=== PATIENT | female | born 1960 | race Caucasian/White ===

== ENCOUNTER → 2019-04-01 | Outpatient (CLI) | payer BC ==
[~2019-04-01] MED LIST: ALPR1T; ATOM80CA PO; BUSPAR PO; CEPH500C PO; CYCL10TA9 PO; DIPH25TA82; DIPH50CA; ENAL20TA PO; FEXO180T; FLUO20CA25 PO; FLUV100C; HORMONE INJECTION; HYDR-3454 PO; HYDR-3714 PO; HYDR1CAP2; IBUP800T26 PO; NFPRILOC40; PS30T; TRAZ-144 PO; TRAZODONE; [UNRECOGNIZED DRUG - OTHER] PO
--- NOTE | 2019-04-02 09:41 | Diagnostic Imaging Report ---
EXAMINATION: Magnetic resonance imaging of the right ankle without contrast. DATE: April 01, 2019. COMPARISON: None. HISTORY: 58-year-old female, right ankle pain and swelling. TECHNIQUE: Magnetic Resonance Imaging sequences were performed of the ankle without contrast. [< >] FINDINGS: There are limitations of the exam relating to motion artifact and low fzwqqv-ph-ktphu ratio. TENDONS AND LIGAMENTS: The Achilles tendon is unremarkable. There is fluid in the tendon sheath of tibialis posterior and flexor digitorum longus compatible with tenosynovitis. There is no identified tear of a posterior flexor tendon. There is fluid in the common peroneal tendon sheath compatible with tenosynovitis. The peroneus longus and peroneus brevis tendons are without identified tear. The anterior extensor tendons - tibialis anterior, extensor hallucis longus and extensor digitorum longus tendons - are intact. The anterior and posterior syndesmotic ligaments are intact. The anterior talofibular, posterior talofibular, calcaneofibular and deltoid ligaments are intact. There is thickening and abnormal signal involving the medial cord of the plantar fascia. There is a tear at the calcaneal attachment site of the medial cord of the plantar fascia with retraction of the plantar fascia by 12 mm. This is best illustrated on sagittal STIR sequence image 8. JOINTS: There is a small tibiotalar and a small to moderate size posterior subtalar joint effusion. BONE: The bones all have normal configuration. The bone marrow signal is within normal limits. Specifically, negative for fracture, osteomyelitis, osteonecrosis, or marrow replacing process. The talar dome is intact. BURSAE AND SOFT TISSUES: The bursae and soft tissues surrounding the ankle are unremarkable. IMPRESSION: 1. Tear at the medial cord of the plantar fascial attachment site of the calcaneus with retraction measuring 12 mm. 2. Multifocal tenosynovitis involving tibialis posterior, flexor digitorum longus, and common peroneal tenosynovitis. No additional identified tendon tear. 3. Intact ankle ligaments. 4. No acute fracture or bone contusion. Intact talar dome. Small tibiotalar and small to moderate size posterior subtalar joint effusions. 5. Significant technical limitations of the exam relating to motion artifact as well as low lfnzjw-ii-bltmn ratio. Dictated by: Dictated on workstation # [id number]
== END ==
LOC: RAD 16:54
PROVIDERS: ATTEND Podiatrist Foot & Ankle Surgery
DX: S96.811A Strain of other specified muscles and tendons at ankle and foot level, right foot, initial encounter (principal); M65.872 Other synovitis and tenosynovitis, left ankle and foot
CPT/HCPCS: 73721

== ENCOUNTER 2019-04-16 10:15 | Outpatient (CLI) | payer BC ==
[~2019-04-16] VITALS: Ht 165.1 cm; Wt 67.1 kg
[~2019-04-16 10:15] MED LIST changes: +FLUT15.88 NS; +GABA-488 PO; +LISI10TA2 PO; +MELO7.5T46 PO; +TURM538C PO; +VITA1CAP PO
== END 2019-04-16 10:51 | disposition home or self-care (01) ==
LOC: PREOP 10:15
PROVIDERS: ATTEND Podiatrist Foot & Ankle Surgery
DX: Z01.818 Encounter for other preprocedural examination (principal)

== ENCOUNTER 2019-04-19 05:53 | Day surgery (SDC) | payer BC ==
[~2019-04-19] VITALS: Ht 165.1 cm; Wt 65.5 kg
[2019-04-19] VITALS (11 sets, daily range): BP systolic 134–156; BP diastolic 74–95
--- OUTSIDE RECORDS SUMMARY | 2019-04-19 05:57 | XMS REPORT | Continuity of Care Document ---
Author Organization Unknown Address Unknown Allergies Active Description Code Type Severity Reaction Onset Reported/Identified Relationship to Patient Clinical Status Yes CODEINE SULFATE UNKNOWN UNKNOWN Yes codeine [id number] Drug Allergy Mild TOLERATES HYDRO 02/11/2010 Yes No Known Drug Allergies [id number] Drug Allergy Unknown N/A 04/15/2019 Medications There is no data. 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 08/18/2014 KOREY DPM, SENIA Q Ot 733.99 BONE CARTILAGE DIS NEC 08/18/2014 KOREY DPM, SENIA Q Ot 735.0 HALLUX VALGUS 08/18/2014 KOREY DPM, SENIA Q Ot 735.4 OTHER HAMMER TOE 08/18/2014 KOREY DPM, SENIA Q Ot 754.52 METATARSUS PRIMUS VARUS 08/18/2014 KOREY DPM, SENIA Q Ot V57.1 PHYSICAL THERAPY NEC 08/18/2014 KOREY DPM, SENIA Q Ot V74.8 SCREEN-BACTERIAL DIS NEC 02/19/2016 Ot V76.12 OTH SCREEN MAMMO- MALIGN NEOPLASM OF MARJAN 02/19/2016 Ot 610.0 SOLITARY CYST OF BREAST 02/19/2016 Ot 611.72 LUMP OR MASS IN BREAST 02/19/2016 Ot 401.9 HYPERTENSION NOS 02/19/2016 Ot 610.0 SOLITARY CYST OF BREAST 02/19/2016 Ot 610.4 MAMMARY DUCT ECTASIA 02/19/2016 Ot V58.69 OT MED,LT,CURRENT USE 02/19/2016 KOREY DPM, SENIA Q Ot 733.99 BONE CARTILAGE DIS NEC 02/19/2016 KOREY DPM, SENIA Q Ot 735.0 HALLUX VALGUS 02/19/2016 KOREY DPM, SENIA Q Ot 735.4 OTHER HAMMER TOE 02/19/2016 KOREY DPM, SENIA Q Ot V72.81 [id number] CARDIOVASCULAR 02/19/2016 KOREY DPM, SENIA Q Ot V74.8 SCREEN-BACTERIAL DIS NEC 02/19/2016 KOREY DPM, SENIA Q Ot 733.99 BONE CARTILAGE DIS NEC 02/19/2016 KOREY DPM, SENIA Q Ot 735.0 HALLUX VALGUS 02/19/2016 KOREY DPM, SENIA Q Ot 735.4 OTHER HAMMER TOE 02/19/2016 KOREY DPM, SENIA Q Ot V72.84 EXAM PRE-OPERATIVE NOS 03/02/2016 CROW BREWSTER DO Ot M25.511 PAIN IN RIGHT SHOULDER 04/06/2016 CELINA ZUNIGA CURING OVEN ATTENDANT Ot M47.892 OTHER SPONDYLOSIS, CERVICAL REGION 04/06/2016 CELINA ZUNIGA CURING OVEN ATTENDANT Ot M75.41 IMPINGEMENT SYNDROME OF RIGHT SHOULDER 04/28/2016 CELINA ZUNIGA CURING OVEN ATTENDANT Ot M47.892 OTHER SPONDYLOSIS, CERVICAL REGION 04/28/2016 CELINA ZUNIGA CURING OVEN ATTENDANT Ot M75.41 IMPINGEMENT SYNDROME OF RIGHT SHOULDER 02/28/2018 Kristie Live W 401.0 MALIGNANT ESSENTIAL HYPERTENSION 02/28/2018 Kristie Live W I10 ESSENTIAL (PRIMARY) HYPERTENSION 02/28/2018 Kristie Live W 296.90 UNSPECIFIED EPISODIC MOOD DISORDER 02/28/2018 Kimberley Livea W 401.0 MALIGNANT ESSENTIAL HYPERTENSION 02/28/2018 Kristie Live W F39 UNSPECIFIED MOOD [AFFECTIVE] DISORDER 02/28/2018 Kristie Live W I10 ESSENTIAL (PRIMARY) HYPERTENSION 02/28/2018 Kristie Live W 296.90 UNSPECIFIED EPISODIC MOOD DISORDER 02/28/2018 Kristie Live 401.0 MALIGNANT ESSENTIAL HYPERTENSION 02/28/2018 Kristie Live W F39 UNSPECIFIED MOOD [AFFECTIVE] DISORDER 02/28/2018 Kristie Live I10 ESSENTIAL (PRIMARY) HYPERTENSION 10/11/2018 Kristie Live 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 10/11/2018 Kristie Live F90.9 ATTENTION- DEFICIT HYPERACTIVITY DISORDER, UNSPECIFIED TYPE 10/11/2018 Kristie Live A 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 10/11/2018 Kristie Live A F90.9 ATTENTION- DEFICIT HYPERACTIVITY DISORDER, UNSPECIFIED TYPE 03/26/2019 KOREY DPM, SENIA Q Ot 733.99 BONE CARTILAGE DIS NEC 03/26/2019 KOREY DPM, SENIA Q Ot 735.0 HALLUX VALGUS 03/26/2019 KOREY DPM, SENIA Q Ot 735.4 OTHER HAMMER TOE 03/26/2019 KOREY DPM, SENIA Q Ot V72.81 [id number] CARDIOVASCULAR 03/26/2019 KOREY DPM, SENIA Q Ot V74.8 SCREEN-BACTERIAL DIS NEC 03/26/2019 KOREY DPM, SENIA Q Ot 733.99 BONE CARTILAGE DIS NEC 03/26/2019 KOREY DPM, SENIA Q Ot 735.0 HALLUX VALGUS 03/26/2019 KOREY DPM, SENIA Q Ot 735.4 OTHER HAMMER TOE 03/26/2019 KOREY DPM, SENIA Q Ot V72.84 EXAM PRE-OPERATIVE NOS 03/26/2019 CROW BREWSTER DO Ot M25.511 PAIN IN RIGHT SHOULDER 03/28/2019 KOREY DPM, SENIA Q Ot 733.99 BONE CARTILAGE DIS NEC 03/28/2019 KOREY DPM, SENIA Q Ot 735.0 HALLUX VALGUS 03/28/2019 KOREY DPM, SENIA Q Ot 735.4 OTHER HAMMER TOE 03/28/2019 KOREY DPM, SENIA Q Ot V72.81 [id number] CARDIOVASCULAR 03/28/2019 KOREY DPM, SENIA Q Ot V74.8 SCREEN-BACTERIAL DIS NEC 03/28/2019 KOREY DPM, SENIA Q Ot 733.99 BONE CARTILAGE DIS NEC 03/28/2019 KOREY DPM, SENIA Q Ot 735.0 HALLUX VALGUS 03/28/2019 KOREY DPM, SENIA Q Ot 735.4 OTHER HAMMER TOE 03/28/2019 KOREY DPM, SENIA Q Ot V72.84 EXAM PRE-OPERATIVE NOS 03/28/2019 NEY DO, CROW Ozuna Ot M25.511 PAIN IN RIGHT SHOULDER 04/07/2019 KOREY DPM, SENIA Q Ot M65.872 OTHER SYNOVITIS AND TENOSYNOVITIS, LEFT 04/07/2019 KOREY DPM, SENIA Q Ot S96.811A STRAIN OF MUSCLES AND TENDONS AT ANK/FT 04/12/2019 KOREY DPM, SENIA Q Ot Z01.818 ENCOUNTER FOR OTHER PREPROCEDURAL EXAMIN 04/15/2019 KOREY DPM, SENIA Q Ot Z01.818 ENCOUNTER FOR OTHER PREPROCEDURAL EXAMIN 04/16/2019 KOREY DPM, SENIA Q Ot Z01.818 ENCOUNTER FOR OTHER PREPROCEDURAL EXAMIN Procedures There is no data. Results Test Result Range Thyroid Stimulating Hormone - 02/28/18 08:07 TSH 4.57 mIU/mL 0.32-5.00 CBC with Auto Diff - 10/11/18 10:59 Baso% 0.10 % 0.00-2.50 Eos 0.1 K/uL 0.0-0.7 Eos% 1.2 % 0.0-7.0 Hct 42.6 % 36.0-46.0 Hgb 14.6 g/dL 13.0-15.0 Lym 1.31 K/uL 0.60-3.40 Lym% 17.1 % 10.0-50.0 MCH 31.8 pg 27.0-31.0 MCHC 34.3 g/dL 32.0-36.0 MCV 92.8 fL 80.0-97.0 Wagoner% 10.2 % 0.0-12.0 MPV 9.9 fL 7.4-10.0 Emerald% 71.4 % 37.0-80.0 Plt 214 K/uL 150-400 RBC 4.59 M/uL 3.60-5.00 RDW 13.9 % 11.6-14.8 WBC 7.65 K/uL 5.00-10.00 Emerald 5.46 K/uL 2.00-6.90 Wagoner 0.8 K/uL 0.0-0.9 Baso 0.0 K/uL 0.0-0.2 [facility] - 04/15/19 10:54 Anion Gap 15 6-14 BUN 14 mg/dL 5-25 Calcium 9.3 mg/dL 8.3-10.4 Chloride 107 mmol/L 95-114 CO2 21 mEq/L 22-33 Creat 0.71 mg/dL 0.50-1.50 eGFR 84 mL/min/1.73m2 >59 Glucose 93 mg/dL 70-110 Osmo 287 280-295 Potassium 4.2 mmol/L 3.5-5.3 Sodium 139 mmol/L 134-148 Encounters ACCT No. Visit Date/Time Discharge Status Pt. Type Provider Facility Loc./Unit Complaint [id number] 04/16/2019 10:15:00 04/16/2019 10:51:00 DIS Outpatient KOREY DPM, SENIA Q Via [facility] PREOP RIGHT TARSAL TUNNEL [id number] 04/01/2019 16:54:00 04/01/2019 23:59:59 CLS Outpatient KOREY DPM, SENIA Q [facility] RAD PAIN TO THE PLANTAR FASCIA,POSTERIOR TIBIAL TENDON [id number] 03/31/2016 08:02:00 04/28/2016 13:28:00 DIS Outpatient CELINA ZUNIGA APRN [facility] REHAB R SHOULDER IMPINGEMENT, CERVICAL SPONDYLOSIS [id number] 02/20/2016 16:43:00 02/20/2016 23:59:59 CLS Outpatient CROW BREWSTER DO [facility] RAD RIGHT SHOULDER PAIN [id number] 08/18/2014 08:56:00 08/18/2014 15:02:00 DIS Outpatient KOREY DPM, SENIA Q [facility] SDC LEFT HALLX;DEANDRE [id number] 08/15/2014 08:46:00 08/15/2014 23:59:59 CLS Outpatient KOREY DPM, SENIA Q [facility] PREOP LEFT HALLX;DEANDRE [id number] 12/06/2013 10:43:00 12/06/2013 17:10:00 DIS Outpatient KOREY DPM, SENIA Q Via [facility] HALLUX VALGUS,HYPERTROPHY 2ND METATARSAL,HAMMERTOE [id number] 11/25/2013 12:10:00 11/25/2013 23:59:59 CLS Outpatient KOREY DPM, SENIA Q [facility] PREOP HALLUX VALGUS;HYPERTROPHY 2ND METATARSAL;HAMMERTOE [id number] 04/19/2019 09:45:00 PEN Preadmit KOREY DPM, SENIA Q Via [facility] RIGHT TARSAL TUNNEL [id number] 02/19/2016 10:03:00 Document Registration [id number] 08/09/2012 12:40:00 Document Registration [id number] 07/03/2012 12:21:00 Document Registration [id number] 03/10/2011 15:21:00 Document Registration [id number] 02/11/2010 07:42:00 Document Registration [id number] 04/15/2019 10:50:00 04/15/2019 23:59:00 DIS Outpatient Kristie Live [id number] 10/11/2018 10:56:00 10/11/2018 23:59:00 DIS Outpatient Kristie Live [id number] 02/28/2018 07:58:00 02/28/2018 23:59:00 DIS Outpatient Kristie Live [id number] 01/10/2017 10:13:00 01/10/2017 23:59:00 DIS Outpatient Kristie Live
[2019-04-19] MEDS ORDERED: LACTATED RINGERS 1,000 ML IV PRN (06:07)
[2019-04-19] MEDS ORDERED: ceFAZolin INJECTION 1,000 MG in WATER (STERILE) FOR INJECTION 10 ML IV ONE (06:15)
[2019-04-19] MEDS ORDERED: MULT-633 PO (06:40)
[2019-04-19] MEDS ORDERED: FAMOTIDINE 20MG/2ML IV (PEPCID) ONE (06:51)
[2019-04-19] MEDS ORDERED: ceFAZolin INJECTION 1,000 MG ONE (06:51)
[2019-04-19] MEDS ORDERED: LIDOCAINE PF 2% 5 ML (XYLOCAINE) VIAL ONE (06:55)
[2019-04-19] MEDS ORDERED: proPOfol 200 MG/20 ML (DIPRIVAN) VIAL IV ONE (06:55)
[2019-04-19] MEDS ORDERED: SEVOFLURANE (ULTANE) 15 ML INHAL SOLN ONE ×2 (06:55→08:53)
[2019-04-19] MEDS ORDERED: fentaNYL INJECTION 100 MCG/2 ML AMP ONE (06:56)
[2019-04-19] MEDS ORDERED: MIDAZOLAM 2 MG/2 ML (VERSED) VIAL ONE (06:56)
[2019-04-19] MEDS ORDERED: FAMOTIDINE 20MG/2ML IV (PEPCID) IV ONE (07:00)
[2019-04-19] MEDS ORDERED: DEXAMETHASONE 10 MG/ML (DECADRON) 1 ML VIAL ONE ×2 (07:03→07:16)
[2019-04-19] MEDS ORDERED: ONDANSETRON 4 MG/2 ML (SDV) Z0FRAN ONE (07:03)
[2019-04-19] MEDS ORDERED: LIDOCAINE 1% INJ 20 ML 20 ML VIAL ONE (07:16)
[2019-04-19] MEDS ORDERED: BUPIVACAINE 0.5% 30 ML (SENSORCAINE) VIAL ONE (07:16)
--- NOTE | 2019-04-19 09:04 | Progress Note-Pre Operative ---
Pre-Operative Progress Note H&P Reviewed The H&P was reviewed, patient examined and no changes noted. Date Seen by Provider: Apr 19, 2019 Time Seen by Provider: : Date H&P Reviewed: Apr 19, 2019 Time H&P Reviewed: :29 Pre-Operative Diagnosis: Tarsal Tunnel Syndrome, Plantar Fasciitis, right SENIA NAIR DPM Apr 19, 2019 09:04
--- NOTE | 2019-04-19 09:05 | Progress Note-Post Operative ---
Post-Operative Progess Note Surgeon (s)/Power Bender Operator (s) Surgeon SENIA NAIR DPM Power Bender Operator: none Pre-Operative Diagnosis Tarsal Tunnel Syndrome, Plantar Fasciitis, right Post-Operative Diagnosis Same Procedure & Operative Findings Date of Procedure 04/19/19 Procedure Performed/Findings Tarsal Tunnel Release, Plantar Fascial Release, right foot Anesthesia Type General Estimated Blood Loss Estimated blood loss (mL): Minimal Specimens/Packing Specimens Removed Plantar Fascia, right SENIA NAIR DPM Apr 19, 2019 09:05
[2019-04-19] MEDS ORDERED: LACTATED RINGERS 1,000 ML IV SCH (09:06)
[2019-04-19] MEDS ORDERED: TRAM-42 PO (09:09)
[2019-04-19] MEDS ORDERED: morphine INJ 10 MG/ML 1ML (SYR OR VIAL) ONE (09:11)
[2019-04-19] MEDS ORDERED: MEPERIDINE (DEMEROL) INJ 50 MG/ML IVP ONE (09:15)
[2019-04-19] MEDS ORDERED: ONDANSETRON 4 MG/2 ML (SDV) Z0FRAN IVP PRN (09:15)
[2019-04-19] MEDS ORDERED: morphine INJ 10 MG/ML 1ML (SYR OR VIAL) IVP ONE (09:15)
[2019-04-19] MEDS ORDERED: ONDANSETRON 4 MG (ZOFRAN) ORAL DISSOLVE TAB PO PRN (09:15)
--- NOTE | 2019-04-19 10:03 | NUR ---
CALLED DR. NAIR AT 1003 AND REPORTED PT'S REQUEST "I WANT SOMETHING OTHER THAN TRAMADOL, IT DOESNT WORK FOR ME. LAST SURGERY THEY GAVE ME PERCOCET, THAT WORKS WELL FOR ME. I AM NOT ALLERGIC TO CODEINE". DR. NAIR STATED HE WOULD COME BACK TO [facility] AND WRITE A NEW SCRIPT.
[2019-04-19] MEDS ORDERED: HYDR-3455 PO (10:27)
--- NOTE | 2019-04-19 10:29 | Anesthesia-General Post-Op ---
General Patient Condition Mental Status/LOC: Same as Preop Cardiovascular: Satisfactory Nausea/Vomiting: Absent Respiratory: Satisfactory Pain: Controlled Complications: Absent Post Op Complications Complications None Follow Up Care/Instructions Patient Instructions None needed. Anesthesia/Patient Condition Patient Condition Patient is doing well, no complaints, stable vital signs, no apparent adverse anesthesia problems. No complications reported per nursing. D/C home per [facility] Criteria: Yes PIERO RIOS CRNA Apr 19, 2019 10:29
[2019-04-19] MEDS ORDERED: HYDROcodone/APAP 5 MG/325 MG (LORTAB) TAB PO ONE (10:30)
[2019-04-19] MEDS ORDERED: HYDROcodone/APAP 5 MG/325 MG (LORTAB) TAB ONE (10:32)
--- NOTE | 2019-04-19 14:47 | OPERATIVE REPORT ---
DATE OF SERVICE: 04/19/2019 SURGEON: Maribel Nair DPM PREOPERATIVE DIAGNOSES: 1. Tarsal tunnel syndrome, Nash's neuritis. 2. Plantar fasciitis, all right foot. POSTOPERATIVE DIAGNOSES: 1. Tarsal tunnel syndrome, Nash's neuritis. 2. Plantar fasciitis, all right foot. PROCEDURES: 1. Tarsal tunnel release. 2. Nash nerve release. 3. Plantar fasciitis release, all right foot. WOUND CLASS: Clean. ANESTHESIA: General. HEMOSTASIS: Pneumatic thigh tourniquet at 250 mmHg. INDICATION: This is a 58-year-old female, who presents complaining of extreme pain associated with the right foot and tarsal tunnel area. The pain is exacerbated by ambulation and shoe gear. Conservative therapy has met with unsatisfactory results and the patient is agreeable to surgical intervention after risks and complications were discussed at length. No guarantees were extended to the patient and she is willing to proceed. She understands that there is a chance of continued pain, worsening pain, numbness or other complications and she is willing to proceed. DESCRIPTION OF PROCEDURE: The patient was brought back to the operating table, placed and secured in supine position. Appropriate time out was performed. Pneumatic thigh tourniquet was placed on the right lower extremity after a general anesthetic was then induced. The right foot was then addressed with 12 mL of 0.5% Marcaine injected into the proximal tarsal tunnel again with aseptic technique. The right foot was then prepped and draped in normal sterile manner. The right foot was then elevated and allowed to exsanguinate after which the tourniquet was inflated to 250 mmHg. Attention was then directed to the tarsal tunnel area of the right lower extremity where an incision was created from the posterior aspect of the medial malleolus extending inferiorly and anteriorly to the medial portion of the inferior aspect or plantar surface of the foot along the tarsal tunnel and into the plantar fascia area. The incision was deepened in the same plane with great care to identify and retract all vital neurovascular structures. All the necessary blood vessels were cauterized as encountered. Sharp and blunt dissection was carried out to the proximal portion of the incision down to the flexor retinaculum, which was then tented and released exposing the artery and venae comitantes. No significant abnormalities were identified within the tarsal tunnel at this time. The wound was flushed with copious amounts of normal saline. Attention was then directed to the deep fascia overlying the abductor hallucis muscle belly where release of the deep fascia was performed from superior to inferior with great care to preserve the underlying muscle belly. Once this was done, the release was continued down to the plantar fascia where the medial band, a portion of the central band was released from the underlying muscle belly and a section of the plantar fascia was sent for gross and microscopic evaluation, approximately 0.5 cm section of the central band was sent for gross and microscopic evaluation. Attention was then directed to the distal portion of the tarsal tunnel where it extended between the abductor and the abductor hallucis muscle belly and the quadratus plantae. The deep fascia the two was released with great care not to disrupt any neurovascular structures, especially Nash's nerve, which was followed distally and released with digital manipulation as well as tenting of the muscle belly and nerve, releasing the deep fascia all the way from the tarsal tunnel down to the inferior aspect of the foot. No other abnormalities were identified at this time. The wound was flushed with copious amounts of normal saline. Tourniquet was released noting no active bleeders. The closure was then performed in layers. Subcutaneous tissue was reapproximated with 4-0 Vicryls. Skin closure was performed with 4-0 Prolene in a horizontal mattress type stitch. Postoperative injection consisted of 6 mL of 0.5% Marcaine injected to the proximal portion of the tarsal tunnel as well as the inferior and posterior aspect of the right calcaneus. A 10 mg of dexamethasone was also injected into the inferior aspect of the right heel at the plantar fascial insertion area. Postoperative dressing consisted of Betadine soaked Adaptic, sterile 4 x 4, sterile Kerlix, soft roll, posterior splint and two Clemente wraps. The patient is to remain nonweightbearing on the right lower extremity. The patient tolerated the anesthesia and procedure well. He was transported from the operating room to the recovery area with vital signs stable and vascular status intact to all digits of the right foot. She is to follow up in my office in 10 days' period of time or sooner if necessary. She was given a prescription for Ultram. Postoperative instructions were discussed at length with the patient and written instruction was given. Job ID: [id number] DocumentID: [id number] Dictated Date: 04/19/2019 09:18:18 Laser Beam Cutter Date: 04/19/2019 14:46:55 Dictated By: MARIBEL NAIR DPM
== END 2019-04-19 11:12 | disposition home or self-care (01) ==
LOC: SDC 05:53
PROVIDERS: ATTEND Podiatrist Foot & Ankle Surgery
DX: G57.51 Tarsal tunnel syndrome, right lower limb (principal); G57.61 Lesion of plantar nerve, right lower limb; M72.2 Plantar fascial fibromatosis; I10 Essential (primary) hypertension; K21.9 Gastro-esophageal reflux disease without esophagitis; F41.9 Anxiety disorder, unspecified; F32.9 Major depressive disorder, single episode, unspecified; F17.210 Nicotine dependence, cigarettes, uncomplicated; Z79.899 Other long term (current) drug therapy
CPT/HCPCS: 87081

== ENCOUNTER 2020-06-17 05:32 | Outpatient (RCR) | payer BC ==
[~2020-06-17] VITALS: Ht 160 cm; Wt 64.9 kg
[~2020-06-17 05:32] MED LIST changes: +ACYC400T PO; +AMPH20TA2 PO; +ESOM20CA PO; +FLUO20TA28 PO; +FLUT15.845 NSEACH; -FLUT15.88 NS; +GABA300C PO; +HYDR-3455 PO; +LORA10TA7 PO; +MULT-633 PO; +TRAM-42 PO
[2020-06-19] MEDS ORDERED: HYDR-3817 PO (12:10)
== END 2020-06-17 15:07 | disposition home or self-care (01) ==
LOC: PREOP 05:32
PROVIDERS: ATTEND Surgery
DX: Z01.818 Encounter for other preprocedural examination (principal); K21.9 Gastro-esophageal reflux disease without esophagitis; Z20.828 Contact with and (suspected) exposure to other viral communicable diseases
CPT/HCPCS: 87635

== ENCOUNTER 2020-08-19 10:38 | Emergency (ER) | payer BC, OTHER ==
[~2020-08-19] VITALS: Ht 160 cm; Wt 66.3 kg
[~2020-08-19 10:38] MED LIST changes: +HYDR-3817 PO
--- NOTE | 2020-08-19 10:52 | ED Upper Extremity ---
General Chief Complaint: Upper Extremity Stated Complaint: WC LT WRIST INJ Source: patient History of Present Illness Date Seen by Provider: Aug 19, 2020 Time Seen by Provider: 10:51 Initial Comments 60 yo female pt sent from [facility] urgent care after having a fall at work and now has a left wrist fracture. She reports that she was working at [employer] and she was walking backwards as they were moving equipment. Her heel of her boot came down on the track and since it was uneven she fell backwards when she lost her balance. She tried to catch herself with her outstretched hand and had pain in her left wrist immediately. She is [id number]. She has tingling in her fingers. She can move her fingers but has pain with movement. She can move her wrist but again has pain with movement. She denies any pain in her elbow or shoulder. She did not hit her head or lose consciousness. She has no other injuries. She last ate around 7:30 AM. She is very anxious and tearful. Allergies and Home Medications Allergies Coded Allergies: No Known Drug Allergies (Unverified , 04/19/19) Home Medications Acyclovir 400 Mg Tablet, 400 MG PO TID, (Reported) Dextroamphetamine/Amphetamine 20 Mg Tablet, 20 MG PO BID, (Reported) Esomeprazole Magnesium 20 Mg Capsule.dr, 20 MG PO DAILY, (Reported) Fluoxetine HCl 20 Mg Tablet, 20 MG PO DAILY, (Reported) Fluticasone Propionate 15.8 Ml Butler.susp, 2 SPRAY NSEACH DAILY, (Reported) Gabapentin 300 Mg Capsule, 600 MG PO BID, (Reported) take 2 (300mg) tabs Hydrocodone/Acetaminophen 1 Each Tablet, 1 EACH PO Q4H Prescribed by: PASCUAL ALANIS on 08/19/20 1353 Lisinopril 10 Mg Tablet, 15 MG PO DAILY, (Reported) take 1 1/2 of 10mg tab Loratadine 10 Mg Tablet, 10 MG PO DAILY, (Reported) Meloxicam 7.5 Mg Tablet, 7.5 MG PO BID PRN for MUSCLE SPASMS, (Reported) Multivitamin 1 Each Tablet, 1 EACH PO DAILY, (Reported) Vitamin B Complex 1 Each Capsule, 1 EACH PO DAILY, (Reported) Patient Home Medication List Home Medication List Reviewed: Yes Review of Systems Constitutional: No chills, No fever EENTM: no symptoms reported Respiratory: no symptoms reported Cardiovascular: no symptoms reported Gastrointestinal: no symptoms reported Genitourinary: no symptoms reported Musculoskeletal: see HPI Skin: no symptoms reported Psychiatric/Neurological: See HPI Past Ugasgfs-Ilices-Sfdcbf Hx Past Med/Social Hx: Reviewed Nursing Past Med/Soc Hx Patient Social History Alcohol Beverage of Choice: Beer Type Used: Cigarettes 2nd Hand Smoke Exposure: Yes Recent Foreign Travel: No Contact w/Someone Who Travel: No Recent Hopitalizations: No Immunizations Up To Date Tetanus Booster (TDap): Unknown Date of Pneumonia Vaccine: Sep 06, 2018 Date of Influenza Vaccine: Jul 30, 2018 Seasonal Allergies Seasonal Allergies: Yes Past Medical History Surgeries: Yes (hernia repair, BILAT BUNIONECTOMY, bilat hammertoe, L knee scope, sinus sx,) Ear Surgery, Gallbladder, Hysterectomy, Tubal Ligation Respiratory: No Cardiac: Yes Hypertension Neurological: No Female 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 8.0oz. [id number]; 25.35 BMI Method: General Appearance: moderate distress (she is anxious and tearful) HEENT: PERRL/EOMI, pharynx normal Neck: non-tender, full range of motion, supple, normal inspection Cardiovascular: normal peripheral pulses, regular rate, rhythm Respiratory: chest non-tender, lungs clear, normal breath sounds, no respiratory distress, no accessory muscle use Shoulder: normal inspection, non-tender, no evidence of injury, normal ROM Elbow/Forearm: normal inspection, non-tender, no evidence of injury, normal ROM Wrist: Yes bone tenderness (left wrist), Yes deformity (left wrist), Yes ecchymosis (left wrist), Yes limited ROM (somewhat limited left wrist range of motion due to pain) Hand: Left, swelling (at the base of the left hand at her wrist) Neurologic/Tendon: normal motor functions, normal tendon functions, no evidence tendon injury, sensory deficit (she reports mild tingling in her fingers on the left hand but intact to light touch) Neurologic/Psychiatric: medical assistant prn II-XII nml as tested, alert, oriented x 3, other (patient is anxious and tearful) Skin: warm/dry, ecchymosis (left wrist where she has deformity and pain) Procedures/Interventions Procedure: closed reduction of distal radius of left arm Patient Education: Explained Benefits, Explained Risks, Pt. Ack. Understanding Agreement on procedure with pt: Yes Breath Sounds per Auscultation: Clear Heart Sounds per Auscultation: Regular Airway Exam: Mouth opens >2 fingers, Neck Full Range of Motion, Visulation of Uvula Sedation Adminstration Time: 11:26 Total Time spent in CS 45 minutes. Given the first dose of Versed at 11:26 AM and spent an extended amount of time trying to get her ring off of her finger. Finally at 11:53 AM additional Versed was given prior to splinting her wrist and forearm and reducing her fracture. She did receive additional fentanyl and Versed to assist with pain and relaxation prior to completing the splinting and reduction. The procedure was concluded that 12:11 PM. Patient tolerated the procedure well without any immediate complications. She was reexamined at 12:15 PM and was neurovascularly intact with good circulation and movement. A second repeat exam was done at 1343 prior to discharge. At that time patient felt her splint and Clemente wrap was too tight so a dose of morphine and Toradol was ordered to help with pain and the Clemente wrap was loosened. Patient was consented for conscious sedation with closed reduction of the left wrist radius fracture. Immediately prior to initiating the procedure a timeout was done and a repeat evaluation of the patient by myself was completed. Her first dose of Versed was given at 11:26 AM. Then she had an extended period of time trying to get her ring off of her left ring finger and when location alone was not helping to cut the ring off a ring cutter had to be employed to remove the ring. Even then it still took additional time and effort to bend the ring and remove it. Finally at 11:53 AM additional medications were administered to help with sedation and pain. After these medicines she had stockinette applied to her left arm and then cotton padding rolled around her wrist and forearm. A sugar tong OCL splint was applied and secured with Clemente bandages. Then using volar or palmar pressure the fracture was reduced and the splint remained secured in place. She was neurovascularly intact immediately after the splint had been secured at 1211 pm and was reexamined at 1215 pm with continued intact NVT status. Prior to discharge she was re-examined again at 1343 and still neurovascularly intact and reports that the tingling she had in her fingers prior to the procedure was resolved. She felt that the Clemente bandage was too tight and it was loosened. She was given a dose of morphine and Toradol to try and help with pain prior to discharge. Prescribed hydrocodone for home and counseled on care and return precautions with the splint and wrist fracture Re-examination Time: 12:15 Re-examination She was reexamined at 12:15 PM and was neurovascularly intact with good circulation and movement. A second repeat exam was done at 1343 prior to discharge. At that time patient felt her splint and Clemente wrap was too tight so a dose of morphine and Toradol was ordered to help with pain and the Clemente wrap was loosened. Splinting and Joint Reduction : Location: left distal radius fracture Pre-Proc Neuro Vasc Exam: normal (with complaint of mild tingling in her fingers) Post-Proc Neuro Vasc Exam: normal (with resolution of the tingling in her fingers) Progress Under conscious sedation the left wrist and forearm had stockinette applied then cotton padding rolled around the wrist and forearm. Then using OCL padded splint material a sugar tong splint was applied and secured with Clemente bandages. Then using a volar or palmar pressure the fracture fragments were reduced and placed into better position. The splint was held in position as it was curing and drying. She was neurovascularly intact both pre-and post procedure. She was placed in a sling and the splinted arm was placed on a pillow for elevation. Ice was applied for pain and swelling. She was allowed to recover from her conscious sedation and then reexamined. On her repeat examination she was still neurov ascularly intact but did feel like the Clemente bandage was a little too tight so this was loosened. She was counseled on follow-up and return precautions related to the splint material and fracture. Progress/Results/Core Measures Results/Orders My Orders Orders - PASCUAL ALANIS MD Ed Iv/Invasive Line Start (08/19/20 11:07) Fentanyl Injection (Sublimaze Injection (08/19/20 11:15) Midazolam Injection (Versed Injection) (08/19/20 11:15) Consent-Obtain Consent For (08/19/20 11:07) Monitor-Rhythm Ecg Trace Only (08/19/20 11:07) Midazolam Injection (Versed Injection) (08/19/20 11:48) Wrist 3 View Left (08/19/20 12:13) Conscious Sedation (08/19/20 12:14) Vital Signs-Conscious Sedation (08/19/20 12:14) Fentanyl Injection (Sublimaze Injection (08/19/20 11:35) Fentanyl Injection (Sublimaze Injection (08/19/20 11:53) Fentanyl Injection (Sublimaze Injection (08/19/20 12:02) Midazolam Injection (Versed Injection) (08/19/20 11:53) Midazolam Injection (Versed Injection) (08/19/20 12:03) Morphine Injection (Morphine Injection (08/19/20 13:39) Ketorolac Injection (Toradol Injection) (08/19/20 13:39) Medications Given in ED Current Medications Medications Dose Ordered Sig/Petra Route Start Time Stop Time Status Last Admin Dose Admin Fentanyl Citrate 50 mcg ONCE ONCE IVP 08/19/20 11:15 08/19/20 11:16 DC 08/19/20 11:19 50 MCG Fentanyl Citrate 50 mcg ONCE ONCE IVP 08/19/20 11:35 08/19/20 12:44 DC 08/19/20 11:35 50 MCG Fentanyl Citrate 50 mcg ONCE ONCE IVP 08/19/20 11:53 08/19/20 12:44 DC 08/19/20 11:53 50 MCG Fentanyl Citrate 50 mcg ONCE ONCE IVP 08/19/20 12:02 08/19/20 12:44 DC 08/19/20 12:02 50 MCG Midazolam HCl 1 mg ONCE ONCE IM 08/19/20 12:03 08/19/20 12:44 DC 08/19/20 12:03 1 MG Midazolam HCl 2 mg ONCE ONCE IVP 08/19/20 11:15 08/19/20 11:16 DC 08/19/20 11:26 2 MG Midazolam HCl 3 mg ONCE ONCE IVP 08/19/20 11:53 08/19/20 12:44 DC 08/19/20 11:53 3 MG Vital Signs/I&O 08/19/20 08/19/20 08/19/20 08/19/20 10:44 11:15 11:15 14:06 Temp 36.4 36.4 36.4 Pulse 69 67 68 Resp 16 20 20 B/P (MAP) 158/94 (115) 161/90 Pulse Ox 99 98 98 O2 Delivery Room Air Nasal Cannula Room Air Nasal Cannula O2 Flow Rate 2.00 Progress Progress Note #1: Progress Note Reviewed x-rays from urgent care showing distal radius fracture on the left with displacement. Advised patient that splinting with conscious sedation and closed reduction for improved positioning would help for pain and follow-up. Patient consented for closed reduction under conscious sedation. Progress Note #2: Progress Note After obtaining consent for closed reduction under conscious sedation patient was given fentanyl and midazolam for pain and sedation. She had a tight ring on ring finger of left hand that had to be removed prior to being able to reduce her wrist. Unable to remove with lubricant so it had to be cut. Evening after cutting the ring and was difficult to bend the edges and it took some effort to get the ring off still. Finally the ring was removed and he procedure for sedation and closed reduction to proceed. At that point the patient's left forearm was placed in a sugar tong splint after giving medication to help with her pain and sedate her. With splint in place pressure was applied with a volar or palmar direction to reduce the fracture and try to improve the positioning of the radius comminuted fracture fragments. As this is a comminuted fracture it appeared unstable and I did not feel the fragments would stay in place without the splint to help hold them. Even then she may still need Orthopedics for more definitive care and I counseled her even before starting the procedure to make sure to follow up with Occupational Health Clinic and see who [place] wants her to see for Orthopedics and wrist injury. given information for Dr. Felix but she may need to see a Plastics or Hand specialist for the wrist fracture. Pt tolerated the conscious sedation and closed reduction well without any immediate complication. She was neurovascularly intact both pre and post procedure and she reported that the tingling she was feeling before the splinting and reduction was resolved after the procedure. Counseled on capillary refill and management of the splint for return precautions and follow-up. Given a dose of morphine and Toradol to help with pain and inflammation prior to discharge. She recently had a prescription for hydrocodone 7.5/325 one every 4 for pain, so I refilled this prescription for her until she could be seen by occupational health or orthopedics. Diagnostic Imaging Diagonstic Imaging: Xray Plain Films/CT/US/NM/MRI: other (left wrist) Comments [facility], [place] NAME: ERLIN PATEL [facility] REC#: [id number] PT STATUS: DEP ER : 1960 PHYSICIAN: PASCUAL ALANIS MD ADMIT DATE: 08/19/20/ER FS Signed Date of Exam:08/19/20 WRIST 3 VIEW LEFT INDICATION: Fall with wrist fracture. TIME OF EXAM: 12:13 PM. FINDINGS: Three views of the left wrist demonstrate overlying cast material obscuring bone detail. There is a comminuted impacted fracture of the distal radius. The fracture lines likely extend to the articular surface. No significant displacement or angulation is seen. There is also a lucency in the region of the distal ulna, suspicious for a non-displaced fracture. The carpus and metacarpals appear to be intact. IMPRESSION: Comminuted impacted intra-articular distal radius fracture. There also appears to be a nondisplaced distal ulnar fracture. Dictated by: Dictated on workstation # [id number] Dict: 08/19/20 1249 Trans: 08/19/20 1604 [id number] Interpreted by: DIONNE WOO MD Electronically signed by: DIONNE WOO MD 08/19/20 1604 Departure Impression Primary Impression: Traumatic closed displaced fracture of distal end of radius Qualified Codes: S52.502A - Unspecified fracture of the lower end of left radius, initial encounter for closed fracture Additional Impression: Fall Qualified Codes: W19.XXXA - Unspecified fall, initial encounter Disposition: 01 HOME, SELF-CARE Condition: Stable Departure-Patient Inst. Decision time for Depature: 13:56 Referrals: ANDI CASTILLO MD (PCP/Family) Primary Care Physician MYRON FELIX MD Patient Instructions: How to Use a Shoulder Sling, Moderate Sedation in Adults (DC), Radius Fracture (DC), SPLINT CARE, Wrist Fracture (DC) Add. Discharge Instructions: Keep splint clean and dry. Use sling to help support and elevate your arm above heart level at all times to help with pain and swelling Call Orthopedics and Work Comp clinic to follow up in 24 to 48 hours about your fracture All discharge instructions reviewed with patient and/or family. Voiced understanding. Scripts Hydrocodone/Acetaminophen (Hydrocodone-Acetamin 7.5-325) 1 Each Tablet 1 EACH PO Q4H, #35 TAB Prov: PASCUAL ALANIS MD 08/19/20 Work/School Note: Work Release Form Date Seen in the Emergency Department: Aug 19, 2020 Return to Work: Aug 21, 2020 Restrictions: Follow Up With [facility] Other Restrictions Listed Below: Light duty. Keep splint clean/dry. Limit use of Left arm. See Occ Health Images Extremities-Upper 1 - Severe (complaints of severe pain), Ecchymosis (mild), Swelling (mild), Other-See Progress Note (severe pain with deformity and mild swelling and bruising) PASCUAL ALANIS MD Aug 19, 2020 10:52
[2020-08-19 11:15] VITALS: BP 161/90
[2020-08-19] MEDS ORDERED: MIDAZOLAM 2 MG/2 ML (VERSED) VIAL IVP ONE (11:15)
[2020-08-19] MEDS ORDERED: fentaNYL INJECTION 100 MCG/2 ML AMP IVP ONE ×4 (11:15→12:02)
[2020-08-19] MEDS ORDERED: MIDAZOLAM 5 MG/5 ML (VERSED) VIAL ONE (11:48)
--- NOTE | 2020-08-19 11:50 | NUR ---
present in front lobby at registration and wanting an update. Went to patient room that is receiving Conscious Sedation for closed reduction wrist, Dr Quick and Yajaira RN explained information this nurse can relay to him. Spouse informed pt is going to have closed reduction of wrist fracture with temporary splint applied and will be to follow up with orthopedics.
[2020-08-19] MEDS ORDERED: MIDAZOLAM 5 MG/5 ML (VERSED) VIAL IVP ONE (11:53)
[2020-08-19] MEDS ORDERED: MIDAZOLAM 2 MG/2 ML (VERSED) VIAL IM ONE (12:03)
--- NOTE | 2020-08-19 12:54 | Diagnostic Imaging Report ---
INDICATION: Fall with wrist fracture. TIME OF EXAM: 12:13 PM. FINDINGS: Three views of the left wrist demonstrate overlying cast material obscuring bone detail. There is a comminuted impacted fracture of the distal radius. The fracture lines likely extend to the articular surface. No significant displacement or angulation is seen. There is also a lucency in the region of the distal ulna, suspicious for a non-displaced fracture. The carpus and metacarpals appear to be intact. IMPRESSION: Comminuted impacted intra-articular distal radius fracture. There also appears to be a nondisplaced distal ulnar fracture. Dictated by: Dictated on workstation # [id number]
[2020-08-19] MEDS ORDERED: KETOROLAC 30 MG/ML VIAL IVP STA (13:39)
[2020-08-19] MEDS ORDERED: morphine INJ 10 MG/ML 1ML (SYR OR VIAL) IVP STA (13:39)
[2020-08-19] MEDS ORDERED: HYDR-3817 PO (13:50)
== END 2020-08-19 14:06 | disposition home or self-care (01) ==
LOC: EDUNIT# 10:38 → ER FS 10:40
DX: S52.572A Other intraarticular fracture of lower end of left radius, initial encounter for closed fracture (principal); I10 Essential (primary) hypertension; K21.9 Gastro-esophageal reflux disease without esophagitis; F41.9 Anxiety disorder, unspecified; F32.9 Major depressive disorder, single episode, unspecified; F90.9 Attention-deficit hyperactivity disorder, unspecified type; Z77.22 Contact with and (suspected) exposure to environmental tobacco smoke (acute) (chronic); Z79.51 Long term (current) use of inhaled steroids; W18.39XA Other fall on same level, initial encounter; Y92.59 Other trade areas as the place of occurrence of the external cause; Y99.0 Civilian activity done for income or pay
CPT/HCPCS: 73110; 93041

== ENCOUNTER 2021-04-05 05:32 | Outpatient (CLI) | payer BC, OTHER ==
[~2021-04-05] VITALS: Ht 165.1 cm; Wt 66.0 kg
[~2021-04-05 05:32] MED LIST changes: -ACYC400T PO; +ACYC400T21 PO; -LISI10TA2 PO; +LISI10TA25 PO
[2021-04-06] MEDS ORDERED: PANT40TA2 PO (08:51)
[2021-04-06] MEDS ORDERED: TUMERIC PO ×2 (08:51→09:08)
== END 2021-04-06 09:04 | disposition home or self-care (01) ==
LOC: PREOP 05:32
PROVIDERS: ATTEND Surgery
DX: Z01.818 Encounter for other preprocedural examination (principal)

== ENCOUNTER 2021-04-08 09:31 | Day surgery (SDC) | payer BC, OTHER ==
[~2021-04-08] VITALS: Ht 165.1 cm; Wt 66.0 kg
[2021-04-08] VITALS (10 sets, daily range): BP systolic 132–156; BP diastolic 65–96
[~2021-04-08 09:31] MED LIST changes: +LACTATED RINGERS 1,000 ML IV PRN; +PANT40TA2 PO; +TUMERIC PO; +ceFAZolin INJECTION 1,000 MG in WATER (STERILE) FOR INJECTION 10 ML IV ONE
--- NOTE | 2021-04-08 09:56 | Progress Note-Pre Operative ---
Pre-Operative Progress Note H&P Reviewed The H&P was reviewed, patient examined and no changes noted. Date Seen by Provider: Apr 08, 2021 Time Seen by Provider: 09:55 Date H&P Reviewed: Apr 08, 2021 Time H&P Reviewed: 09:50 Pre-Operative Diagnosis: Symptomatic ventral abdominal hernia KARLA EARL APRN Apr 08, 2021 09:56
[2021-04-08] MEDS ORDERED: OXYC1TAB16 PO (09:58)
--- NOTE | 2021-04-08 09:59 | Discharge Inst-Surgical ---
D/C Lap Instructions-KIDO Reconcile Patient Problems Problems Reviewed?: Yes New, Converted, or Re-Newed RX: RX on Chart Follow Up Appt in 2 weeks Activity as tolerated No driving for 24 hours No driving while on pain medications Incentive Spirometry use every 2 hours while awake Regular Diet Symptoms to Report: Fever over 101 degree F, Nausea/Vomiting Infection Signs and Symptoms to report: Increased redness, Foul odor of wound, Increased drainage Bathing instructions: May shower Operative Area Clean/Dry; Keep incision clean/dry If any problems/questions: Contact your physician or go to Emergency Room KARLA EARL APRN Apr 08, 2021 09:59
[2021-04-08] MEDS ORDERED: oxyCODONE/APAP 5/325MG (PERCOCET 5) TABLET PO PRN (10:00)
[2021-04-08] MEDS ORDERED: ACETAMINOPHEN 325 MG TABLET PO PRN (10:00)
[2021-04-08] MEDS ORDERED: ONDANSETRON 4 MG/2 ML (SDV) Z0FRAN IVP PRN ×2 (10:00→13:15)
[2021-04-08] MEDS ORDERED: morphine INJ 10 MG/ML 1ML (SYR OR VIAL) IVP PRN (10:00)
[2021-04-08 10:26] LABS: BASOPHILS % (AUTO) 1 % (0-10); EOSINOPHILS # (AUTO) 0.2 10^3/uL (0.0-0.3); EOSINOPHILS % (AUTO) 2 % (0-10); HEMATOCRIT 44 % (35-52); HEMOGLOBIN 15.1 g/dL (11.5-16.0); LYMPHOCYTES # (AUTO) 2.1 10^3/uL (1.0-4.0); LYMPHOCYTES % (AUTO) 26 % (12-44); MEAN CORPUSCULAR HEMOGLOBIN 32 pg (25-34); MEAN CORPUSCULAR HGB CONC 35 g/dL (32-36); MEAN CORPUSCULAR VOLUME 92 fL (80-99); MEAN PLATELET VOLUME 9.7 fL (9.0-12.2); MONOCYTES # (AUTO) 0.6 10^3/uL (0.0-1.0); MONOCYTES % (AUTO) 7 % (0-12); NEUTROPHILS # (AUTO) 5.1 10^3/uL (1.8-7.8); NEUTROPHILS % (AUTO) 64 % (42-75); PLATELET COUNT 255 10^3/uL (130-400)
[2021-04-08] MEDS ORDERED: FAMOTIDINE 20MG/2ML IV (PEPCID) IV ONE (10:30)
[2021-04-08] MEDS ORDERED: ceFAZolin INJECTION 1,000 MG in WATER (STERILE) FOR INJECTION 10 ML IV ONE (10:30)
[2021-04-08] MEDS ORDERED: ONDANSETRON 4 MG/2 ML (SDV) Z0FRAN IV ONE (10:30)
[2021-04-08] MEDS ORDERED: LACTATED RINGERS 1,000 ML IV PRN (10:30)
[2021-04-08] MEDS ORDERED: MIDAZOLAM 2 MG/2 ML (VERSED) VIAL IVP ONE (10:45)
[2021-04-08] MEDS ORDERED: LIDOCAINE PF 2% 5 ML (XYLOCAINE) VIAL ONE (10:54)
[2021-04-08] MEDS ORDERED: proPOfol 200 MG/20 ML (DIPRIVAN) VIAL IV ONE (10:54)
[2021-04-08] MEDS ORDERED: ROCURONIUM 10 MG/ML 5 ML SYRINGE IV ONE (10:54)
[2021-04-08] MEDS ORDERED: fentaNYL INJ 100 MCG/2 ML AMP ONE (10:54)
[2021-04-08] MEDS ORDERED: MIDAZOLAM 2 MG/2 ML (VERSED) VIAL ONE (10:54)
[2021-04-08] MEDS ORDERED: NEOSTIGMINE 3 MG/3 ML VIAL ONE (10:54)
[2021-04-08] MEDS ORDERED: ONDANSETRON 4 MG/2 ML (SDV) Z0FRAN ONE ×2 (10:54→13:17)
[2021-04-08] MEDS ORDERED: GLYCOPYRROLATE 0.2 MG/ML (ROBINUL) 2 ML VIAL ONE (10:54)
[2021-04-08] MEDS ORDERED: LIDOCAINE/EPI 1%-1:100,000 (XYLOCAINE) 20ML ONE (10:57)
[2021-04-08] MEDS ORDERED: MIDAZOLAM 2 MG/2 ML (VERSED) VIAL IM ONE (11:00)
[2021-04-08] MEDS ORDERED: HYDROmorphone 2 MG/ML VIAL (DILAUDID) ONE ×2 (12:43→13:13)
--- NOTE | 2021-04-08 12:46 | Progress Note-Post Operative ---
Post-Operative Progess Note Surgeon (s)/Line Haul Driver (s) Surgeon LEXIE GALLARDO MD Line Haul Driver: elizabeth carroll IT NETWORK ADMINISTRATOR Pre-Operative Diagnosis Symptomatic ventral abdominal incisional hernia Post-Operative Diagnosis same(1.5x1.5cm) Procedure & Operative Findings Date of Procedure 04/08/21 Procedure Performed/Findings incarcerated incisional hernia repair with mesh Anesthesia Type get Estimated Blood Loss Estimated blood loss (mL): minimal Specimens/Packing Specimens Removed hernia sac LEXIE GALLARDO MD Apr 08, 2021 12:46
[2021-04-08] MEDS ORDERED: SEVOFLURANE (ULTANE) 15 ML INHAL SOLN ONE (13:03)
[2021-04-08] MEDS ORDERED: HYDROmorphone 2 MG/ML VIAL (DILAUDID) IV ONE (13:15)
[2021-04-08] MEDS ORDERED: morphine INJ 10 MG/ML 1ML (SYR OR VIAL) IVP ONE (13:15)
[2021-04-08] MEDS ORDERED: VASOPRESSIN INJECTION 20 UNIT/ML VIAL ONE ×3 (13:20→13:28)
--- NOTE | 2021-04-08 14:24 | Anesthesia-General Post-Op ---
General Patient Condition Mental Status/LOC: Same as Preop Cardiovascular: Satisfactory Nausea/Vomiting: Absent Respiratory: Satisfactory Pain: Controlled Complications: Absent Post Op Complications Complications None Follow Up Care/Instructions Patient Instructions None needed. Anesthesia/Patient Condition Patient Condition Patient is doing well, no complaints, stable vital signs, no apparent adverse anesthesia problems. BAILEY DAMON DO Apr 08, 2021 14:24
--- NOTE | 2021-04-08 17:43 | OPERATIVE REPORT ---
DATE OF SERVICE: 04/08/2021 ATTENDING PRIMARY CARE PHYSICIAN: Kristie Live MD PREOPERATIVE DIAGNOSIS: Symptomatic ventral abdominal incisional hernia. POSTOPERATIVE DIAGNOSIS: Incarcerated symptomatic ventral abdominal incisional hernia. PROCEDURE: Open repair incarcerated ventral abdominal incisional hernia with mesh with a defect 1.5 x 1.5 cm in size. DISPOSITION: The patient tolerated the procedure well. INDICATIONS: The patient is a 60-year-old female known to us. She has had epigastric abdominal pain, which started some time ago; however, has worsened lately. She states that with exertion, this is significantly worse. For her work, she does do a significant amount of heavy lifting, which does cause worsening pain as well as a palpable bulge in the epigastric region along the previous port incision site. She was examined and found to have incarcerated ventral abdominal incisional hernia. DESCRIPTION OF PROCEDURE: The patient was brought to the operating room, laid supine on the table. After adequate IV pain and sedative medications and general endotracheal intubation, the abdomen was prepped and draped in standard surgical fashion. A 0.5% Marcaine with epinephrine was used to anesthetize overlying skin in the epigastric region along the previous incision site and a transverse skin incision made using a 15 blade. Subcutaneous tissue was then dissected down using electrocautery and the hernia sac was identified with only omentum within the hernia sac. We then proceeded with dissection to the fascial base with a defect of the fascia approximately 1.5 x 1.5 cm. Fascia around the defect was then cleared off using blunt dissection as well as electrocautery. The hernia sac was then opened using Metzenbaum scissors and the hernia sac as well as the incarcerated omentum were then excised using electrocautery under direct visualization. No other palpable hernias from the peritoneal lining. A 6.4 cm coated polypropylene mesh was then placed into the defect and sutured concentrically in a transfascial manner to the mesh using interrupted 0 Prolene sutures. The subcutaneous tissue was then reapproximated using 3-0 Vicryl interrupted sutures and skin was closed using 4-0 Monocryl running subcuticular suture. Wound was then cleaned and covered with Dermabond. The patient tolerated the procedure well. She will be instructed to keep her pressure dressing on for the next week and then removed and she also needs to wear her abdominal binder on for the next two weeks. We will also recommend that she do no heavy lifting or exertion for the next six weeks. Job ID: [id number] DocumentID: [id number] Dictated Date: 04/08/2021 12:52:24 Retail Aide Date: 04/08/2021 17:42:38 Dictated By: LEXIE GALLARDO MD
== END 2021-04-08 15:55 | disposition home or self-care (01) ==
LOC: SDC 09:31
PROVIDERS: ATTEND Surgery
DX: K43.0 Incisional hernia with obstruction, without gangrene (principal); I10 Essential (primary) hypertension; G62.9 Polyneuropathy, unspecified; F32.9 Major depressive disorder, single episode, unspecified; F41.9 Anxiety disorder, unspecified; K21.9 Gastro-esophageal reflux disease without esophagitis; F17.210 Nicotine dependence, cigarettes, uncomplicated; Z79.51 Long term (current) use of inhaled steroids; Z79.899 Other long term (current) drug therapy; Z90.49 Acquired absence of other specified parts of digestive tract; Z98.890 Other specified postprocedural states; K59.00 Constipation, unspecified
CPT/HCPCS: 49561; 49568; 85025; 87081; C1781; 36415

== ENCOUNTER → 2021-05-20 | Outpatient (CLI) | payer BC ==
[~2021-05-20] MED LIST changes: +CATHETER FLUSH 10 ML SYR IV PRN; +HOLD METFORMIN - RECEIVED CONTRAST 20 ML VIAL IV SCH; +IOHEXOL 350 MG/ML 100 ML (OMNIPAQUE 350) VIAL IV ONE; -LACTATED RINGERS 1,000 ML IV PRN; +NS 100 ML (IVPB) BAG IV ONE; +OXYC1TAB16 PO; -ceFAZolin INJECTION 1,000 MG in WATER (STERILE) FOR INJECTION 10 ML IV ONE
[2021-05-20 08:35] LABS: CREATININE SERUM 0.74 MG/DL (0.60-1.30)
--- NOTE | 2021-05-20 10:47 | Diagnostic Imaging Report ---
PROCEDURE: CT abdomen and pelvis with and without contrast. TECHNIQUE: Precontrast acquisitions were acquired through the abdomen and pelvis. Multiple contiguous axial images were obtained through the abdomen and pelvis after the administration of intravenous contrast. Auto Exposure Controls were utilized during the CT exam to meet ALARA standards for radiation dose reduction. INDICATION: Abdominal pain, bloating and nausea with constipation. COMPARISON: No prior studies are available for comparison. FINDINGS: The lung bases are clear. Liver demonstrates some generalized low density consistent with hepatic steatosis. No discrete liver mass is detected. The gallbladder is surgically absent. No biliary ductal dilatation is seen. The pancreas and spleen are unremarkable. No adrenal mass is identified. Kidneys are unremarkable. Aorta is nonaneurysmal. There appear to be postsurgical changes from abdominal wall hernia repair in the midline upper abdomen. Bowel loops are normal caliber. No obstruction is seen. There is no free fluid or fluid collection. Partially filled urinary bladder is unremarkable. IMPRESSION: 1. Hepatic steatosis and status post cholecystectomy. 2. Status post abdominal wall hernia repair. No recurrent hernia is identified. No acute feature in the abdomen or pelvis is identified. Dictated by: Dictated on workstation # [id number]
== END ==
LOC: RAD 08:45
PROVIDERS: ATTEND Surgery
DX: K76.0 Fatty (change of) liver, not elsewhere classified (principal); Z90.49 Acquired absence of other specified parts of digestive tract; Z98.890 Other specified postprocedural states
CPT/HCPCS: 36415; 74178; 82565; 84520